=== PATIENT | female | born 1975 | race African-American/Black ===

== ENCOUNTER 2016-07-16 15:10 | Emergency (ER) | payer OTHER ==
[2016-07-16 15:30] VITALS: BP 123/73; PULSE 74; TEMP 97.8; BMI 23.5
[2016-07-16] MEDS ORDERED: KETOROLAC TROMETHAMINE 60 MG/2 ML VIAL IM ONE (16:31)
[2016-07-16] MEDS ORDERED: KETOROLAC TROMETHAMINE 60 MG/2 ML VIAL ONE (16:35)
--- NOTE | 2016-07-16 16:37 | PDOC ---
History of Present Illness - General Chief Complaint: Pain, Acute Stated Complaint: RT SHOULDER PAIN Time Seen by Provider: 07/16/16 15:41 History Source: Patient Exam Limitations: No Limitations - History of Present Illness Initial Comments: 07/16/16 16:31 41 yr female no medical history c/o pain to right shoulder to side of neck for 3 days after waking up with stiff neck. Pt denies trauma, denies fever or headache. Extremity Pain Location - Extremity Pain Location Extremity Pain Locations: right: other (shoulder) Past History - Past Medical History Allergies/Adverse Reactions: Allergies Allergy/AdvReac Type Severity Reaction Status Date / Time No Known Allergies Allergy Verified 07/16/16 15:26 Home Medications: Ambulatory Orders Cyclobenzaprine HCl [Flexeril -] 5 mg PO HS #7 tablet 07/16/16 Naproxen [Naprosyn -] 500 mg PO BID PRN #14 tablet 07/16/16 Other medical history: denies - Psycho/Social/Smoking Cessation Hx Suicidal Ideation: No Smoking History: Never smoked Substance Use Type: None Review of Systems - Review of Systems Able to Perform ROS?: Yes Is the patient limited [place]ian proficient: No Constitutional: No: Symptoms Reported HEENTM: No: Symptoms Reported Respiratory: No: Symptoms reported Cardiac (ROS): No: Symptoms Reported ABD/GI: No: Symptoms Reported : No: Symptoms Reported Musculoskeletal: Yes: Symptoms Reported *Physical Exam - Vital Signs Last Vital Signs Temp Pulse Resp BP Pulse Ox 97.8 F 74 14 123/73 100 07/16/16 15:26 07/16/16 15:26 07/16/16 15:26 07/16/16 15:26 07/16/16 15:26 - Physical Exam General Appearance: Yes: Nourished, Appropriately Dressed HEENT: positive: EOMI, SAULO, Normal ENT Inspection, TMs Normal, Pharynx Normal Neck: positive: Tender, Tender lateral (right side). negative: Lymphadenopathy (R), Lymphadenopathy (L), Rigidity Respiratory/Chest: positive: Lungs Clear, Normal Breath Sounds Cardiovascular: positive: Regular Rhythm, Regular Rate Musculoskeletal: positive: Normal Inspection Extremity: positive: Normal Capillary Refill, Normal Inspection, Normal Range of Motion, Tender (posterior shoulder soft tissue to trapezius muscle , reproduced to touch and movement) ED Treatment Course - ADDITIONAL ORDERS Additional order review: Laboratory Results 07/16/16 16:10 Urine HCG, Qual Negative Medical Decision Making - Medical Decision Making 07/16/16 16:33 cc: shoulder pain. neck pain stiffness worse at night and when awakening, pt believes she sleeps on her shoulder and has caused stiffness neg numbness or tingling will give toradol and dc with naprosyn and felxeril pt to f/u with ortho *DC/Admit/Observation/Transfer Diagnosis at time of Disposition: Cervical radiculopathy - Discharge Dispostion Disposition: HOME Condition at time of disposition: Good - Prescriptions Prescriptions: Cyclobenzaprine HCl [Flexeril -] 5 mg PO HS #7 tablet Naproxen [Naprosyn -] 500 mg PO BID PRN #14 tablet PRN Reason: Pain - Referrals Referrals: Jessica Price [Primary Care Provider] - Carlito Gomez MD [Staff Physician] - - Patient Instructions Additional Instructions: apply ice pack every 2hrs for 20 minutes to the area of pain then alternate with heating pad take flexeril muscel relaxant at bedtime , it can make you drowsy take naprosyn every 12hrs for pain make sure your pillow and mattress are in good condition as this can make the pain worse follow witht orthopedist for follow up if symptoms do not improve or worsen next week
== END 2016-07-16 16:41 | disposition home or self-care (01) ==
LOC: JERFT 15:10
PROC: 3E0233Z Introduction of Anti-inflammatory into Muscle, Percutaneous Approach (ICD-10-PCS; principal; 2016-07-16)
DX: M54.12 Radiculopathy, cervical region (principal)
CPT/HCPCS: 84703; 96372; 99281-25